=== PATIENT | female | born 1980 | race Two or more races ===

== ENCOUNTER 2020-02-14 19:06 | Emergency (ER) | payer BC, MEDICAID ==
[~2020-02-14] VITALS: Ht 167.6 cm; Wt 79.4 kg
[2020-02-14 19:32] VITALS: BP 145/82
--- NOTE | 2020-02-14 20:10 | NUR ---
RAPID STREP & COVID TEST DONE & SENT TO LAB. Patient discharged to home in stable condition. Written and verbal after care instructions given. Patient verbalizes understanding of instruction.
== END 2020-02-14 20:13 | disposition home or self-care (01) ==
LOC: ER 19:16
DX: J02.0 Streptococcal pharyngitis (principal); B95.0 Streptococcus, group A, as the cause of diseases classified elsewhere; Z20.828 Contact with and (suspected) exposure to other viral communicable diseases; R03.0 Elevated blood-pressure reading, without diagnosis of hypertension
CPT/HCPCS: 87880; 99283; C9803; U0003; 86403-TC

== ENCOUNTER 2020-05-20 15:40 | Emergency (ER) | payer BC, OTHER ==
[~2020-05-20] VITALS: Ht 167.6 cm; Wt 77.1 kg
[2020-05-20 16:06] VITALS: BP 137/83
--- NOTE | 2020-05-22 12:50 | NUR ---
talked to staff & notified about positive results. advised on isolation for 7-10 days, amenable.
== END 2020-05-20 16:43 | disposition home or self-care (01) ==
LOC: ER 15:56
DX: U07.1 COVID-19 (principal); M79.10 Myalgia, unspecified site; R11.2 Nausea with vomiting, unspecified
CPT/HCPCS: 99283; C9803; U0003